=== PATIENT | male | born 1975 | race American Indian/Alaskan Native ===

== ENCOUNTER 2016-05-30 20:52 | Emergency (ER) | payer OTHER ==
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
[2016-05-30 23:36] LABS: Anion Gap 23 mmol/L; Blood Urea Nitrogen 15 mg/dL (9-20); Calcium 9.3 mg/dL (8.4-10.2); Carbon Dioxide 21 mmol/L (22-30); Chloride 96.9 mmol/L (98-107); Glucose 118 mg/dL (75-100); Potassium 4.4 mmol/L (3.6-5.0); Sodium 136 mmol/L (137-145)
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
[2016-05-31] MEDS ORDERED: MOTRIN PO ONE ×2 (01:30→01:33)
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
[2016-05-31] MEDS ORDERED: NORVASC PO ONE (01:51)
[2016-05-31 02:17] VITALS: BP 143/89
== END 2016-05-31 02:17 ==
LOC: ED 20:52
DX: S06.9X1A Unspecified intracranial injury with loss of consciousness of 30 minutes or less, initial encounter (principal); E11.9 Type 2 diabetes mellitus without complications; F17.200 Nicotine dependence, unspecified, uncomplicated; V89.2XXA Person injured in unspecified motor-vehicle accident, traffic, initial encounter; Y93.89 Activity, other specified; Y99.8 Other external cause status; Y92.488 Other paved roadways as the place of occurrence of the external cause
CPT/HCPCS: 36415; 70450; 72125; 80048; 99284; G0480; 80320

== ENCOUNTER 2020-11-01 12:49 | Emergency (ER) | payer SELFPAY ==
[2020-11-01 13:06] VITALS: BP 150/98
--- NOTE | 2020-11-01 13:58 | Emergency Department Report ---
ED General Adult HPI - General Chief complaint: Allergic Reaction Stated complaint: ALLERGIC REACTION Time Seen by Provider: 11/01/20 13:52 Source: patient Mode of arrival: Stretcher Limitations: No Limitations - History of Present Illness Initial comments: The patient was evaluated in the emergency department for symptoms described in the history of present illness. He/she was evaluated in the context of the global COVID-19 pandemic, which necessitated consideration that the patient might be at risk for infection with the virus that causes COVID-19. Institutional protocols and algorithms that pertain to the evaluation of patients at risk for COVID-19 are in a state of rapid change based on information released by regulatory bodies including the CDC and federal and state organizations. These policies and algorithms were followed during the patient's care in the emergency department. Please note that these policies, procedures and recommendations changed on a rapid basis. 44-year-old -[place] male with a past medical history of diabetes presents to the emergency room for allergic reaction to a wasp by EMS. Patient reports that he was bit on his left ear. Patient states that he is allergic to any flying bugs. Patient reports that at the time he experienced shortness of breath near syncopal moment whelps all over. In route patient received Solu- Medrol 125, epi 0.5 and patient took 3 [id number] Benadryl gelcaps. Patient reports he feels a lot better but still feels jittery and itching. Patient states he is compliant with his medication for his diabetes and his last A1c was 6 from 8. Patient has a primary care provider Dr. Burrell. [facility]. -: This afternoon Location: face (Warps sting to left ear), neck (Urticaria rash), chest (Urticaria rash), back (Urticaria rash), abdomen (Urticaria rash) Severity scale (0 -10): 8 Consistency: other (Improving) Improves with: medication Associated Symptoms: shortness of breath, syncope. denies: fever/chills, nausea/vomiting Treatments Prior to Arrival: other (epi 0.5, Solu-Medrol 125, Benadryl 75 mg) - Related Data Previous Rx's Medication Instructions Recorded Last Taken Type Naproxen [Naprosyn] 500 mg PO BID PRN #20 tablet 03/26/15 Unknown Rx Ondansetron [Zofran ODT TAB] 8 mg PO Q8HR PRN #20 tab.rapdis 03/26/15 Unknown Rx levoFLOXacin [Levaquin] 750 mg PO QDAY #7 tablet 03/26/15 Unknown Rx Cyclobenzaprine [Flexeril] 10 mg PO TID PRN #10 tablet 05/31/16 Unknown Rx Ibuprofen [Motrin] 600 mg PO Q8H PRN #25 tablet 05/31/16 Unknown Rx Cetirizine HCl 10 mg PO QDAY #10 tablet 11/01/20 Unknown Rx EPINEPHrine [Epipen 2-Fuentes] 0.3 mg IJ ONCE PRN #2 auto.injct 11/01/20 Unknown Rx Famotidine [Pepcid] 20 mg PO BID #20 tablet 11/01/20 Unknown Rx Prednisone [predniSONE 10 mg 10 mg PO .TAPER #1 tab.ds.pk 11/01/20 Unknown Rx (6-Day Pack, 21 Tabs)] Allergies Allergy/AdvReac Type Severity Reaction Status Date / Time No Known Allergies Allergy Verified 09/16/14 23:07 ED Review of Systems ROS: Stated complaint: ALLERGIC REACTION Other details as noted in HPI Comment: All other systems reviewed and negative ED Past Medical Hx - Past Medical History Previous Medical History?: Yes Hx Diabetes: Yes (diet-controlled) - Social History Smoking Status: Current Every Day Smoker Substance Use Type: None - Medications Home Medications: Home Medications Medication Instructions Recorded Confirmed Last Taken Type Naproxen [Naprosyn] 500 mg PO BID PRN #20 tablet 03/26/15 Unknown Rx Ondansetron [Zofran ODT TAB] 8 mg PO Q8HR PRN #20 tab.rapdis 03/26/15 Unknown Rx levoFLOXacin [Levaquin] 750 mg PO QDAY #7 tablet 03/26/15 Unknown Rx Cyclobenzaprine [Flexeril] 10 mg PO TID PRN #10 tablet 05/31/16 Unknown Rx Ibuprofen [Motrin] 600 mg PO Q8H PRN #25 tablet 05/31/16 Unknown Rx Cetirizine HCl 10 mg PO QDAY #10 tablet 11/01/20 Unknown Rx EPINEPHrine [Epipen 2-Fuentes] 0.3 mg IJ ONCE PRN #2 auto.injct 11/01/20 Unknown Rx Famotidine [Pepcid] 20 mg PO BID #20 tablet 11/01/20 Unknown Rx Prednisone [predniSONE 10 mg 10 mg PO .TAPER #1 tab.ds.pk 11/01/20 Unknown Rx (6-Day Pack, 21 Tabs)] ED Physical Exam - General Limitations: No Limitations General appearance: alert - Head Head exam: Present: atraumatic, normocephalic, other (Swelling of face eyelids) - Eye Eye exam: Present: periorbital swelling - ENT ENT exam: Present: mucous membranes moist. Absent: normal external ear exam (Left ear tragus mild swelling) - Neck Neck exam: Present: normal inspection, full ROM, other (Multiple urticaria) - Respiratory Respiratory exam: Present: normal lung sounds bilaterally. Absent: accessory muscle use - Cardiovascular Cardiovascular Exam: Present: tachycardia - GI/Abdominal GI/Abdominal exam: Present: soft. Absent: distended, tenderness - Extremities Exam Extremities exam: Present: normal inspection - Back Exam Back exam: Present: normal inspection - Neurological Exam Neurological exam: Present: alert, oriented X3 - Psychiatric Psychiatric exam: Present: normal affect, normal mood - Skin Skin exam: Present: urticaria ED Course Vital Signs 11/01/20 13:05 Temperature 98 F Pulse Rate 105 H Respiratory 16 Rate Blood Pressure 150/98 [Right] O2 Sat by Pulse 98 Oximetry ED Medical Decision Making - Medical Decision Making 44-year-old -[place] male with a past medical history of diabetes presents to the emergency room for allergic reaction to a wasp by EMS. Patient reports that he was bit on his left ear. Patient states that he is allergic to any flying bugs. Patient reports that at the time he experienced shortness of breath near syncopal moment whelps all over. In route patient received Solu- Medrol 125, epi 0.5 and patient took 3 ujtz-qaz-lupyqke Benadryl gelcaps. Patient reports he feels a lot better but still feels jittery and itching. Patient states he is compliant with his medication for his diabetes and his last A1c was 6 from 8. Patient has a primary care provider Dr. Burrell. [facility]. Patient placed on color television console monitor with pulse ox. Patient is ordered Pepcid IV. Patient be continue to be monitor. Patient has been here for 3 hours and 51 minutes with uneventful stay. Patient has been stable with stable vital signs. Patient reports that he feels much better. Patient will be discharged on prednisone, Pepcid Zyrtec's and EpiPen. Patient is instructed to follow-up with a primary care provider to have allergy testing. Critical care attestation.: If time is entered above; I have spent that time in minutes in the direct care of this critically ill patient, excluding procedure time. ED Disposition Clinical Impression: Allergic reaction Qualifiers: Encounter type: initial encounter Qualified Code(s): T78.40XA - Allergy, unspecified, initial encounter Disposition: TO HOME OR SELFCARE Is pt being admited?: No Does the pt Need Aspirin: No Condition: Stable Instructions: Allergies, Adult, [id number], How to Use an Auto-Injector Pen, Anaphylactic Reaction, Adult, Qjhy-zu-Jrhp Additional Instructions: Please complete medication as prescribed. Use EpiPen as needed. Follow-up with your primary care provider for allergy testing. Prescriptions: Cetirizine HCl 10 mg PO QDAY #10 tablet EPINEPHrine [Epipen 2-Fuentes] 0.3 mg IJ ONCE PRN #2 auto.injct PRN Reason: Anaphylaxis Famotidine [Pepcid] 20 mg PO BID #20 tablet Prednisone [predniSONE 10 mg (6-Day Pack, 21 Tabs)] 10 mg PO .TAPER #1 tab.ds.pk Referrals: [facility] [Provider Group] - 3-5 Days Forms: Work/School Release Form(ED)
[2020-11-01] MEDS ORDERED: FAMOTIDINE 20 MG/2 ML INJ IV ONE (14:01)
== END 2020-11-01 17:07 | disposition home or self-care (01) ==
LOC: ED 12:49
DX: T78.40XA Allergy, unspecified, initial encounter (principal); E11.9 Type 2 diabetes mellitus without complications; F17.200 Nicotine dependence, unspecified, uncomplicated; Z79.899 Other long term (current) drug therapy; Y93.89 Activity, other specified
CPT/HCPCS: 96374

== ENCOUNTER 2021-05-06 11:33 | Emergency (ER) | payer SELFPAY ==
[2021-05-06] MEDS ORDERED: TETANUS,DIPH,PERTUSS(ACELL) VACCINE 0.5 ML SYRINGE IM ONE (12:11)
--- NOTE | 2021-05-06 12:12 | Emergency Department Report ---
ED Extremity Problem HPI - General Chief complaint: Wound/Laceration Stated complaint: FOOT INJURY DIABETIC Time Seen by Provider: 05/06/21 12:02 Source: patient Mode of arrival: Ambulatory Limitations: No Limitations - History of Present Illness Initial comments: 45-year-old -Stateless male with past medical history of diabetes presents to the ER today with complaints of puncture wound to his plantar right foot. Patient states that the incident occurred about 4 months ago. He states that he stepped on a tack that was sticking out of the carpet. He did go through his work boots. He states that he did not seek medical attention at the time. He states that he has been keeping it clean and that over time he would get better but he states that it is still sore, and week ago noticed some pus drainage from it and is also concerned that is not healing.. He states that given the fact that he is a diabetic is no concern for infection. He states that he does not have a PCP due to lack of insurance. He reports some mild swelling around the area but no redness. He denies any fever chills or any additional symptoms at this time. He is not up-to-date on his tetanus MD Complaint: other (PW to plantar right foot ) -: month(s) (4) - Related Data Previous Rx's Medication Instructions Recorded Last Taken Type Naproxen [Naprosyn] 500 mg PO BID PRN #20 tablet 03/26/15 Unknown Rx Ondansetron [Zofran ODT TAB] 8 mg PO Q8HR PRN #20 tab.rapdis 03/26/15 Unknown Rx levoFLOXacin [Levaquin] 750 mg PO QDAY #7 tablet 03/26/15 Unknown Rx Cyclobenzaprine [Flexeril] 10 mg PO TID PRN #10 tablet 05/31/16 Unknown Rx Ibuprofen [Motrin] 600 mg PO Q8H PRN #25 tablet 05/31/16 Unknown Rx Cetirizine HCl 10 mg PO QDAY #10 tablet 11/01/20 Unknown Rx EPINEPHrine [Epipen 2-Fuentes] 0.3 mg IJ ONCE PRN #2 auto.injct 11/01/20 Unknown Rx Famotidine [Pepcid] 20 mg PO BID #20 tablet 11/01/20 Unknown Rx Prednisone [predniSONE 10 mg 10 mg PO .TAPER #1 tab.ds.pk 11/01/20 Unknown Rx (6-Day Pack, 21 Tabs)] cephALEXin [Keflex] 500 mg PO Q8HR #21 cap 05/06/21 Unknown Rx Allergies Allergy/AdvReac Type Severity Reaction Status Date / Time No Known Allergies Allergy Verified 09/16/14 23:07 ED Review of Systems ROS: Stated complaint: FOOT INJURY DIABETIC Other details as noted in HPI Comment: All other systems reviewed and negative Respiratory: denies: cough, shortness of breath, wheezing Cardiovascular: denies: chest pain, palpitations Musculoskeletal: myalgia Skin: other (puncture wound right foot ) Neurological: denies: headache, weakness, numbness, paresthesias, confusion, abnormal gait, vertigo Psychiatric: denies: anxiety, depression, auditory hallucinations, visual hallucinations, homicidal thoughts, suicidal thoughts Hematological/Lymphatic: denies: easy bleeding, easy bruising, swollen glands ED Past Medical Hx - Past Medical History Hx Diabetes: Yes (diet-controlled) - Social History Smoking Status: Current Every Day Smoker Substance Use Type: None - Medications Home Medications: Home Medications Medication Instructions Recorded Confirmed Last Taken Type Naproxen [Naprosyn] 500 mg PO BID PRN #20 tablet 03/26/15 Unknown Rx Ondansetron [Zofran ODT TAB] 8 mg PO Q8HR PRN #20 tab.rapdis 03/26/15 Unknown Rx levoFLOXacin [Levaquin] 750 mg PO QDAY #7 tablet 03/26/15 Unknown Rx Cyclobenzaprine [Flexeril] 10 mg PO TID PRN #10 tablet 05/31/16 Unknown Rx Ibuprofen [Motrin] 600 mg PO Q8H PRN #25 tablet 05/31/16 Unknown Rx Cetirizine HCl 10 mg PO QDAY #10 tablet 11/01/20 Unknown Rx EPINEPHrine [Epipen 2-Fuentes] 0.3 mg IJ ONCE PRN #2 auto.injct 11/01/20 Unknown Rx Famotidine [Pepcid] 20 mg PO BID #20 tablet 11/01/20 Unknown Rx Prednisone [predniSONE 10 mg 10 mg PO .TAPER #1 tab.ds.pk 11/01/20 Unknown Rx (6-Day Pack, 21 Tabs)] cephALEXin [Keflex] 500 mg PO Q8HR #21 cap 05/06/21 Unknown Rx ED Physical Exam - General Limitations: No Limitations General appearance: alert, in no apparent distress - Head Head exam: Present: atraumatic, normocephalic, normal inspection - Eye Eye exam: Present: normal appearance, PERRL, EOMI Pupils: Present: normal accommodation - Neck Neck exam: Present: normal inspection, full ROM. Absent: meningismus - Respiratory Respiratory exam: Absent: respiratory distress - Cardiovascular Cardiovascular Exam: Present: regular rate - Expanded Lower Extremity Exam Right Gait: Positive: observed and normal 1 - Very small PW noted with associated thickend skin and hyperpigmentation. Suspect associated callus No erythema, drainage, fluctuance or necrosis noted. area very mild ttp. - Neurological Exam Neurological exam: Present: alert, oriented X3, CN II-XII intact, normal gait - Psychiatric Psychiatric exam: Present: normal affect, normal mood - Skin Skin exam: Present: normal color ED Course Vital Signs 05/06/21 11:46 Temperature 98.2 F Pulse Rate 74 Respiratory 18 Rate Blood Pressure 139/93 O2 Sat by Pulse 99 Oximetry ED Medical Decision Making - Radiology Data Radiology results: report reviewed interpreted by me: Patient: MARCELINO VERA MR#: [id number] : 1975 Acct:[id number] Age/Sex: 45 / M ADM Date: 05/06/21 Loc: ED Attending Dr: Ordering Physician: VALARIE KNAPP Date of Service: 05/06/21 Procedure(s): XR foot 3+V RT Accession Number(s): [id number] cc: VALARIE KNAPP Fluoro Time In Minutes: RIGHT FOOT 3 VIEW(S) INDICATION / CLINICAL INFORMATION: PW right x 4mths ago;pain COMPARISON: None available. FINDINGS: BONES / JOINT(S): No acute fracture or subluxation. No significant arthritis. SOFT TISSUES: No significant abnormality. ADDITIONAL FINDINGS: None. Signer Name: Zay Stanley DO Signed: 05/06/2021 12:38 PM Workstation Name: [id number] Transcribed By: ANSATACIO Dictated By: ZAY STANLEY DO Electronically Authenticated By: ZAY STANLEY DO Signed Date/Time: 05/06/21 1238 DD/ 1237 TD/TT: - Medical Decision Making 45-year-old -Stateless male with past medical history of diabetes presents to the ER today with complaints of puncture wound to his plantar right foot. Patient states that the incident occurred about 4 months ago. He states that he stepped on a tack that was sticking out of the carpet. He did go through his work boots. He states that he did not seek medical attention at the time. He states that he has been keeping it clean and that over time he would get better but he states that it is still sore, and week ago noticed some pus drainage from it and is also concerned that is not healing.. He states that given the fact that he is a diabetic is no concern for infection. He states that he does not have a PCP due to lack of insurance. He reports some mild swelling around the area but no redness. He denies any fever chills or any additional symptoms at this time. He is not up-to-date on his tetanus. 1313: Xray shows nothing acute. Pt does have small callus to plantar foot with what looks like tiny PW. Overall no significant signs of infection but will give rx for abx since he reported seeing pus drainage and will give him referral to acoustical installer and wound clinic. Wound care was discussed with patient. [place] plan discussed with patient. Patient was stable at discharge. Critical care attestation.: If time is entered above; I have spent that time in minutes in the direct care of this critically ill patient, excluding procedure time. ED Disposition Clinical Impression: Puncture wound, Callus of foot Disposition: HOME / SELF CARE / HOMELESS Is pt being admited?: No Does the pt Need Aspirin: No Condition: Stable Instructions: Puncture Wound, Qats-et-Nrff, Corns and Calluses Additional Instructions: Continue to keep the area clean but this time receive soap and water. No alcohol or peroxide. Take the antibiotics as prescribed to cover for possible infection. Most importantly you will need to follow-up with acoustical installer or you can follow-up with the wound clinic listed on your discharge instructions. Return to the ER if your symptoms worsens in any way. Prescriptions: cephALEXin [Keflex] 500 mg PO Q8HR #21 cap Referrals: SPENCER ROSE DPM [Staff Physician] - 3-5 Days [facility] [Outside] - 3-5 Days Time of Disposition: 13:09
--- NOTE | 2021-05-06 12:42 | XRay Report ---
RIGHT FOOT 3 VIEW(S) INDICATION / CLINICAL INFORMATION: PW right x 4mths ago;pain COMPARISON: None available. FINDINGS: BONES / JOINT(S): No acute fracture or subluxation. No significant arthritis. SOFT TISSUES: No significant abnormality. ADDITIONAL FINDINGS: None. Signer Name: Zay Sewell DO Signed: 05/06/2021 12:38 PM Workstation Name: [id number]
[2021-05-06 13:33] VITALS: BP 141/97
== END 2021-05-06 13:31 | disposition home or self-care (01) ==
LOC: ED 11:33
DX: S91.331A Puncture wound without foreign body, right foot, initial encounter (principal); L84 Corns and callosities; E11.9 Type 2 diabetes mellitus without complications; F17.200 Nicotine dependence, unspecified, uncomplicated; Z79.899 Other long term (current) drug therapy; W22.8XXA Striking against or struck by other objects, initial encounter; Y93.89 Activity, other specified; Y92.89 Other specified places as the place of occurrence of the external cause; Y99.8 Other external cause status
CPT/HCPCS: 90471; 90715; 99283